=== PATIENT | male | born 1990 | race Two or more races ===

== ENCOUNTER 2017-07-23 20:59 | Emergency (ER) | payer MEDICAID ==
[~2017-07-23] VITALS: Ht 167.6 cm; Wt 107.9 kg
[~2017-07-23 20:59] MED LIST: CLIN-79 PO
[2017-07-23 21:49] LABS: BASOPHILS % (AUTO) 0 % (0-1); EOSINOPHILS % (AUTO) 0 % (0-6); HEMOGLOBIN 16.5 g/dl (14.0-17.9); LYMPHOCYTES # (AUTO) 0.7 X10'3 (1.1-4.8); LYMPHOCYTES % (AUTO) 8.6 % (21-51); MEAN CORPUSCULAR HEMOGLOBIN 31.7 PG (27.0-31.0); MEAN CORPUSCULAR HGB CONC 35.1 % (33.0-36.5); MEAN CORPUSCULAR VOLUME 90.2 FL (78-98); MEAN PLATELET VOLUME 7.7 FL (7.4-10.4); MONOCYTES # (AUTO) 0.9 X10'3 (0-0.9); MONOCYTES % (AUTO) 10.6 % (2-12); NEUTROPHILS # (AUTO) 6.8 X10'3 (1.8-7.7); NEUTROPHILS % (AUTO) 80.8 % (42-75); PLATELET COUNT 153 X10'3 (140-440); RED BLOOD COUNT 5.21 X10'6 (4.70-6.10); RED CELL DISTRIBUTION WIDTH 12.3 % (11.5-14.5); WHITE BLOOD COUNT 8.5 X10'3 (4.5-11.0)
[2017-07-23 22:05] LABS: INR 1.1 INR; PROTHROMBIN TIME 11.7 SECONDS (9.0-12.0)
[2017-07-23 22:20] LABS: ALANINE AMINOTRANSFERASE 52 U/L (12-78); ALBUMIN 3.8 G/DL (3.4-5.0); ALBUMIN/GLOBULIN RATIO 0.9 (1.1-1.5); ALKALINE PHOSPHATASE 62 IU/L (46-116); ANION GAP 16 (8-16); ASPARTATE AMINO TRANSFERASE 37 U/L (10-37); BILIRUBIN,TOTAL 0.5 MG/DL (0.1-1.0); BLOOD UREA NITROGEN 12 MG/DL (7-18); BUN/CREATININE RATIO 9.6 (5.4-32.0); CALCIUM 8.8 MG/DL (8.5-10.1); CHLORIDE 94 MMOL/L (99-107); CREATININE 1.25 MG/DL (0.60-1.10); GLUCOSE 105 MG/DL (70-104); POTASSIUM 3.5 MMOL/L (3.5-5.1); SODIUM 132 MMOL/L (135-145); TOTAL CARBON DIOXIDE 21.8 MMOL/L (24-32); TOTAL PROTEIN 7.9 G/DL (6.4-8.2); eGFR 70 ML/MIN
[2017-07-23] MEDS ORDERED: morphine 4 MG/ML inj SYRINge IV ONE (23:20)
[2017-07-23] MEDS ORDERED: normal saline 1000ml 1,000 ML IV ONE (23:20)
[2017-07-23] MEDS ORDERED: ondansetron/PF 4mg/2ml inj IV ONE (23:20)
[2017-07-23 23:27] LABS: CLARITY,URINE CLEAR (Clear); COLOR,URINE YELLOW (Yellow); GLUCOSE, URINE NEGATIVE (Neg); KETONES,URINE >=80 mg/dl (Neg); LEUKOCYTE ESTERASE ,URINE NEGATIVE (Neg); NITRITES, URINE NEGATIVE (Neg); OCCULT BLOOD,URINE SMALL (Neg); PROTEIN,URINE 30 mg/dl (Neg); UROBILINOGEN,URINE 0.2 E.U/dL (0.2-1.0)
[2017-07-23 23:33] LABS: UA COLLECTION TYPE CLN CATCH MIDSTREAM
[2017-07-23 23:34] LABS: BACTERIA,URINE NONE SEEN /HPF (Neg); RBC,URINE 0-2 /HPF (0-2); SQUAMOUS EPITHELIAL CELL,UR FEW /LPF (FEW); WBC,URINE NONE SEEN /HPF (0-4)
[2017-07-24] MEDS ORDERED: dexamethasone sod phosphate 10mg/ml inj IV STA (00:49)
[2017-07-24] MEDS ORDERED: IBUP-1984 PO (00:51)
[2017-07-24] MEDS ORDERED: ONDA4TAB9 PO (00:51)
[2017-07-24 01:06] VITALS: BP 129/84
== END 2017-07-24 01:07 | disposition home or self-care (01) ==
LOC: ER 21:00
DX: B34.9 Viral infection, unspecified (principal); R11.10 Vomiting, unspecified; R19.7 Diarrhea, unspecified; Z88.0 Allergy status to penicillin
CPT/HCPCS: 36415; 80053; 81001; 85025; 85610; 96361; 96374; 96375; 99284; A4565; J1100; J2270; J2405; J7030

== ENCOUNTER 2017-07-27 02:16 | Inpatient (IN) | payer MEDICAID ==
[~2017-07-27] VITALS: Ht 170.2 cm; Wt 104.5 kg
[~2017-07-27 02:16] MED LIST changes: +IBUP-1984 PO; +ONDA4TAB9 PO
[2017-07-27] MEDS ORDERED: ondansetron/PF 4mg/2ml inj IV ONE (03:15)
[2017-07-27] MEDS ORDERED: normal saline 1000ml 1,000 ML IV ONE (03:15)
[2017-07-27] MEDS ORDERED: morphine 4 MG/ML inj SYRINge IV ONE (03:15)
[2017-07-27] MEDS ORDERED: iohexol 300mg/ml 100ml inj. ONE (03:17)
[2017-07-27 03:21] LABS: BASOPHILS % (AUTO) 0.1 % (0-1); EOSINOPHILS # (AUTO) 0.1 X10'3 (0-0.9); EOSINOPHILS % (AUTO) 0.7 % (0-6); HEMATOCRIT 49.2 % (42.0-52.0); HEMOGLOBIN 17.1 g/dl (14.0-17.9); LYMPHOCYTES # (AUTO) 0.6 X10'3 (1.1-4.8); LYMPHOCYTES % (AUTO) 4.1 % (21-51); MEAN CORPUSCULAR HEMOGLOBIN 31.6 PG (27.0-31.0); MEAN CORPUSCULAR HGB CONC 34.8 % (33.0-36.5); MEAN CORPUSCULAR VOLUME 90.9 FL (78-98); MEAN PLATELET VOLUME 8.5 FL (7.4-10.4); MONOCYTES # (AUTO) 0.8 X10'3 (0-0.9); NEUTROPHILS # (AUTO) 12.4 X10'3 (1.8-7.7); NEUTROPHILS % (AUTO) 89.1 % (42-75); PLATELET COUNT 126 X10'3 (140-440); RED BLOOD COUNT 5.42 X10'6 (4.70-6.10); RED CELL DISTRIBUTION WIDTH 12.5 % (11.5-14.5); WHITE BLOOD COUNT 13.9 X10'3 (4.5-11.0)
[2017-07-27 03:32] LABS: INR 1.1 INR
[2017-07-27 03:37] LABS: CLARITY,URINE CLEAR (Clear); COLOR,URINE YELLOW (Yellow); GLUCOSE, URINE NEGATIVE (Neg); KETONES,URINE TRACE mg/dl (Neg); LEUKOCYTE ESTERASE ,URINE NEGATIVE (Neg); NITRITES, URINE NEGATIVE (Neg); OCCULT BLOOD,URINE SMALL (Neg); PH,URINE 5.5 (4.8-8.0); PROTEIN,URINE 30 mg/dl (Neg); UROBILINOGEN,URINE 0.2 E.U/dL (0.2-1.0)
[2017-07-27] MEDS ORDERED: ondansetron 4mg rapidly disintigrating tab PO ONE (03:40)
[2017-07-27 03:42] LABS: UA COLLECTION TYPE CLN CATCH MIDSTREAM
[2017-07-27 03:46] LABS: ALANINE AMINOTRANSFERASE 74 U/L (12-78); ALBUMIN 3.1 G/DL (3.4-5.0); ALBUMIN/GLOBULIN RATIO 0.7 (1.1-1.5); ALKALINE PHOSPHATASE 61 IU/L (46-116); ANION GAP 20 (8-16); ASPARTATE AMINO TRANSFERASE 130 U/L (10-37); BILIRUBIN,TOTAL 0.8 MG/DL (0.1-1.0); BLOOD UREA NITROGEN 36 MG/DL (7-18); BUN/CREATININE RATIO 12.8 (5.4-32.0); CALCIUM 9.1 MG/DL (8.5-10.1); CHLORIDE 93 MMOL/L (99-107); CREATININE 2.82 MG/DL (0.60-1.10); GLUCOSE 106 MG/DL (70-104); LIPASE 127 U/L (73-393); POTASSIUM 3.5 MMOL/L (3.5-5.1); SODIUM 132 MMOL/L (135-145); TOTAL CARBON DIOXIDE 18.9 MMOL/L (24-32); TOTAL PROTEIN 7.7 G/DL (6.4-8.2); eGFR 27 ML/MIN
[2017-07-27 03:46] LABS: BACTERIA,URINE 1+ /HPF (Neg); CELLULAR CAST 0-4 /LPF (NEGATIVE); RBC,URINE 0-2 /HPF (0-2); SQUAMOUS EPITHELIAL CELL,UR NONE SEEN /LPF (FEW)
[2017-07-27 04:05] LABS: PLATELET ESTIMATE DECREASED; TOTAL CELLS COUNTED 100
[2017-07-27] MEDS ORDERED: levoFLOXACIN-Levaquin 750MG/D5 150 ML IV STA (04:13)
[2017-07-27 04:21] LABS: D-DIMER 18.58 MG/L FEU (0-0.50)
[2017-07-27] MEDS ORDERED: NO HOME MEDS (05:31)
[2017-07-27] MEDS ORDERED: bisacodyl 10mg suppository rectal RC PRN (08:00)
[2017-07-27] MEDS ORDERED: potassium Cl 20 mEq SR tablet PO PRN ×2 (08:00)
[2017-07-27] MEDS ORDERED: magnesium Cl slow-release 64mg tablet PO PRN (08:00)
[2017-07-27] MEDS ORDERED: ondansetron/PF 4mg/2ml inj IV PRN (08:00)
[2017-07-27] MEDS ORDERED: mag hydrox/Alum hydrox/simeth 30ml oral suspension PO PRN (08:00)
[2017-07-27] MEDS ORDERED: enoxaparin 40mg/0.4ml syringe SUBCUT SCH (08:00)
[2017-07-27] MEDS ORDERED: magnesium 2GM in 50ml NS 50 ML IV PRN (08:00)
[2017-07-27] MEDS: terbinafine 250mg tablet PO SCH (08:00)
[2017-07-27] MEDS ORDERED: potassium Cl 40MEQ/NS 500ml 500 ML IV PRN ×2 (08:00)
[2017-07-27] MEDS: K and/or MAG REPLACEMENT MC SCH (08:00)
[2017-07-27] MEDS: levoFLOXACIN-Levaquin 750MG/D5 150 ML IV SCH (08:00)
[2017-07-27] MEDS ORDERED: HYDROcodone/acetaminophen 5mg/325mg tablet PO PRN (08:00)
[2017-07-27] MEDS ORDERED: magnesium 4gm in 100ml NS 100 ML IV PRN (08:00)
[2017-07-27] MEDS ORDERED: magnesium hydroxide 30ml (MOM) UD suspension PO PRN (08:00)
[2017-07-27] MEDS ORDERED: ONDA4TAB9 SL (08:03)
[2017-07-27 08:30] VITALS: BP 139/76
[2017-07-27] MEDS: docusate sod 100mg capsule PO SCH ×2 (10:27→21:02)
[2017-07-27] MEDS: potassium Cl 20mEq in NS 1,000 ML IV SCH ×2 (10:27→21:01)
[2017-07-27 11:00] VITALS: BP 121/76
[2017-07-27] MEDS: acetaminophen 325mg tablet PO PRN (14:01)
[2017-07-27 15:00] VITALS: BP 103/59
[2017-07-27 15:38] LABS: URINE AMPHETAMINE SCREEN NEGATIVE (Neg); URINE BARBITUATE SCREEN NEGATIVE (Neg); URINE BENZODIAZEPINES SCREEN NEGATIVE (Neg); URINE CANNABINOID SCREEN POSITIVE (Neg); URINE COCAINE SCREEN NEGATIVE (Neg); URINE METHADONE SCREEN NEGATIVE (Neg); URINE OPIATE SCREEN POSITIVE (Neg); URINE PHENCYCLIDINE SCREEN NEGATIVE (Neg)
[2017-07-27] MEDS: metoclopramide 5 mg/ml inj IV PRN (18:46)
[2017-07-27] MEDS: HYDROcodone/acetaminophen 10/325mg tab PO PRN (18:55)
[2017-07-27 19:00] VITALS: BP 121/71
[2017-07-27] MEDS ORDERED: triamcinolone acet 0.1% cream 15gm TP SCH (20:00)
[2017-07-27] MEDS ORDERED: morphine 4 MG/ML inj SYRINge IV PRN (20:30)
[2017-07-27] MEDS: lactobacillus rhamnosus 10,000 MMU CELLS/CAPSULE PO SCH (21:02)
[2017-07-27] MEDS: enoxaparin 100mg/ml syringe SUBCUT SCH (21:03)
[2017-07-27] MEDS: clotrimazole topical cream 15gm tube TP SCH (21:03)
[2017-07-27 23:00] VITALS: BP 124/73
[2017-07-28 03:00] VITALS: BP 126/74
[2017-07-28 06:00] VITALS: BP 131/91
[2017-07-28 06:08] LABS: BASOPHILS % (AUTO) 0.1 % (0-1); EOSINOPHILS # (AUTO) 0.1 X10'3 (0-0.9); EOSINOPHILS % (AUTO) 0.7 % (0-6); HEMATOCRIT 40.1 % (42.0-52.0); HEMOGLOBIN 14.1 g/dl (14.0-17.9); LYMPHOCYTES # (AUTO) 0.7 X10'3 (1.1-4.8); LYMPHOCYTES % (AUTO) 6.1 % (21-51); MEAN CORPUSCULAR HEMOGLOBIN 32.2 PG (27.0-31.0); MEAN CORPUSCULAR HGB CONC 35.2 % (33.0-36.5); MEAN CORPUSCULAR VOLUME 91.5 FL (78-98); MEAN PLATELET VOLUME 8.6 FL (7.4-10.4); MONOCYTES # (AUTO) 1.4 X10'3 (0-0.9); MONOCYTES % (AUTO) 12.3 % (2-12); NEUTROPHILS # (AUTO) 9.2 X10'3 (1.8-7.7); NEUTROPHILS % (AUTO) 80.8 % (42-75); PLATELET COUNT 142 X10'3 (140-440); RED BLOOD COUNT 4.39 X10'6 (4.70-6.10); RED CELL DISTRIBUTION WIDTH 12.3 % (11.5-14.5); WHITE BLOOD COUNT 11.4 X10'3 (4.5-11.0)
[2017-07-28] MEDS: docusate sod 100mg capsule PO SCH ×2 (06:17→22:49)
[2017-07-28 06:27] LABS: ALANINE AMINOTRANSFERASE 56 U/L (12-78); ALBUMIN 2.1 G/DL (3.4-5.0); ALBUMIN/GLOBULIN RATIO 0.5 (1.1-1.5); ALKALINE PHOSPHATASE 59 IU/L (46-116); ANION GAP 11 (8-16); ASPARTATE AMINO TRANSFERASE 144 U/L (10-37); BILIRUBIN,TOTAL 1.7 MG/DL (0.1-1.0); BLOOD UREA NITROGEN 18 MG/DL (7-18); CALCIUM 8.2 MG/DL (8.5-10.1); CHLORIDE 102 MMOL/L (99-107); CREATININE 1.29 MG/DL (0.60-1.10); GLUCOSE 98 MG/DL (70-104); MAGNESIUM 2.3 MG/DL (1.5-2.4); POTASSIUM 3.9 MMOL/L (3.5-5.1); SODIUM 134 MMOL/L (135-145); TOTAL CARBON DIOXIDE 21.1 MMOL/L (24-32); eGFR 67 ML/MIN
[2017-07-28 06:54] LABS: PLATELET ESTIMATE DECREASED; TOTAL CELLS COUNTED 100
[2017-07-28] MEDS: terbinafine 250mg tablet PO SCH (07:38)
[2017-07-28] MEDS: potassium Cl 20mEq in NS 1,000 ML IV SCH ×2 (07:38→13:49)
[2017-07-28] MEDS: enoxaparin 100mg/ml syringe SUBCUT SCH (07:39)
[2017-07-28] MEDS: lactobacillus rhamnosus 10,000 MMU CELLS/CAPSULE PO SCH ×2 (07:39→22:49)
[2017-07-28] MEDS: clotrimazole topical cream 15gm tube TP SCH ×2 (07:40→22:50)
[2017-07-28] MEDS: K and/or MAG REPLACEMENT MC SCH (08:00)
[2017-07-28] MEDS: levoFLOXACIN-Levaquin 750MG/D5 150 ML IV SCH (08:00)
[2017-07-28] MEDS ORDERED: iohexol 350MG/ML 100ml bottle IV ONE (09:58)
[2017-07-28] MEDS ORDERED: albuterol 2.5 MG/3 ML nebule NEB PRN (10:15)
[2017-07-28 11:00] VITALS: BP 120/81
[2017-07-28] MEDS: acetaminophen 325mg tablet PO PRN ×2 (11:11→19:35)
[2017-07-28 15:00] VITALS: BP 129/75
[2017-07-28] MEDS: benzonatate 100mg capsule PO SCH (16:32)
[2017-07-28] MEDS: doxycycline hyclate 100mg tablet.DR PO SCH (17:04)
[2017-07-28 19:00] VITALS: BP 125/82
[2017-07-28 23:00] VITALS: BP 119/75
[2017-07-29] MEDS: benzonatate 100mg capsule PO SCH ×4 (00:15→23:43)
[2017-07-29] MEDS: potassium Cl 20mEq in NS 1,000 ML IV SCH ×3 (00:16→21:00)
[2017-07-29 03:00] VITALS: BP 124/76
[2017-07-29 05:20] LABS: BASOPHILS % (AUTO) 0.2 % (0-1); EOSINOPHILS % (AUTO) 0.1 % (0-6); HEMATOCRIT 37.5 % (42.0-52.0); HEMOGLOBIN 13.2 g/dl (14.0-17.9); LYMPHOCYTES # (AUTO) 1.1 X10'3 (1.1-4.8); LYMPHOCYTES % (AUTO) 10.2 % (21-51); MEAN CORPUSCULAR HEMOGLOBIN 31.8 PG (27.0-31.0); MEAN CORPUSCULAR HGB CONC 35.1 % (33.0-36.5); MEAN CORPUSCULAR VOLUME 90.5 FL (78-98); MEAN PLATELET VOLUME 8.5 FL (7.4-10.4); MONOCYTES # (AUTO) 1.2 X10'3 (0-0.9); MONOCYTES % (AUTO) 11.3 % (2-12); NEUTROPHILS # (AUTO) 8.5 X10'3 (1.8-7.7); NEUTROPHILS % (AUTO) 78.2 % (42-75); PLATELET COUNT 183 X10'3 (140-440); RED BLOOD COUNT 4.14 X10'6 (4.70-6.10); RED CELL DISTRIBUTION WIDTH 12.6 % (11.5-14.5); WHITE BLOOD COUNT 10.9 X10'3 (4.5-11.0)
[2017-07-29 05:22] LABS: ALANINE AMINOTRANSFERASE 54 U/L (12-78); ALBUMIN/GLOBULIN RATIO 0.5 (1.1-1.5); ALKALINE PHOSPHATASE 59 IU/L (46-116); ANION GAP 9 (8-16); ASPARTATE AMINO TRANSFERASE 140 U/L (10-37); BILIRUBIN,TOTAL 1.1 MG/DL (0.1-1.0); BLOOD UREA NITROGEN 16 MG/DL (7-18); BUN/CREATININE RATIO 16.3 (5.4-32.0); CALCIUM 8.1 MG/DL (8.5-10.1); CHLORIDE 106 MMOL/L (99-107); CREATININE 0.98 MG/DL (0.60-1.10); GLUCOSE 87 MG/DL (70-104); MAGNESIUM 2.4 MG/DL (1.5-2.4); POTASSIUM 4.2 MMOL/L (3.5-5.1); SODIUM 138 MMOL/L (135-145); TOTAL CARBON DIOXIDE 23.4 MMOL/L (24-32); TOTAL PROTEIN 5.9 G/DL (6.4-8.2); eGFR > 90 ML/MIN
[2017-07-29 06:00] VITALS: BP 121/80
[2017-07-29] MEDS: levoFLOXACIN-Levaquin 750MG/D5 150 ML IV SCH (07:16)
[2017-07-29] MEDS: lactobacillus rhamnosus 10,000 MMU CELLS/CAPSULE PO SCH ×2 (07:17→20:59)
[2017-07-29] MEDS: doxycycline hyclate 100mg tablet.DR PO SCH ×2 (07:17→17:38)
[2017-07-29] MEDS: terbinafine 250mg tablet PO SCH (07:17)
[2017-07-29] MEDS: docusate sod 100mg capsule PO SCH ×2 (07:17→20:59)
[2017-07-29] MEDS: enoxaparin 40mg/0.4ml syringe SQ SCH (07:18)
[2017-07-29 07:32] LABS: BANDS% (MANUAL) 8 % (0-10); LYMPHOCYTES % (MANUAL) 7 % (21-51); METAMYLEOCYTES% (MANUAL) 2 % (0-0); MONOCYTES % (MANUAL) 10 % (2-12); MYELOCYTES % (MANUAL) 1 % (0-0); NEUTROPHILS % (MANUAL) 72 % (42-75); PLATELET ESTIMATE NORMAL; TOTAL CELLS COUNTED 100
[2017-07-29] MEDS: K and/or MAG REPLACEMENT MC SCH (08:00)
[2017-07-29] MEDS ORDERED: enoxaparin 100mg/ml syringe SUBCUT SCH (08:00)
[2017-07-29] MEDS: clotrimazole topical cream 15gm tube TP SCH ×2 (08:00→20:59)
[2017-07-29 19:00] VITALS: BP 135/76
[2017-07-29 23:00] VITALS: BP 128/81
[2017-07-30 03:00] VITALS: BP 138/93
[2017-07-30] MEDS: potassium Cl 20mEq in NS 1,000 ML IV SCH ×2 (05:58→15:32)
[2017-07-30 06:00] VITALS: BP 136/96
[2017-07-30 06:23] LABS: ALANINE AMINOTRANSFERASE 57 U/L (12-78); ALBUMIN/GLOBULIN RATIO 0.5 (1.1-1.5); ALKALINE PHOSPHATASE 80 IU/L (46-116); ANION GAP 11 (8-16); ASPARTATE AMINO TRANSFERASE 133 U/L (10-37); BILIRUBIN,TOTAL 0.7 MG/DL (0.1-1.0); BLOOD UREA NITROGEN 14 MG/DL (7-18); BUN/CREATININE RATIO 18.2 (5.4-32.0); CALCIUM 7.9 MG/DL (8.5-10.1); CHLORIDE 109 MMOL/L (99-107); CREATININE 0.77 MG/DL (0.60-1.10); GLUCOSE 85 MG/DL (70-104); MAGNESIUM 1.9 MG/DL (1.5-2.4); POTASSIUM 3.6 MMOL/L (3.5-5.1); SODIUM 141 MMOL/L (135-145); TOTAL CARBON DIOXIDE 20.7 MMOL/L (24-32); TOTAL PROTEIN 5.9 G/DL (6.4-8.2); eGFR > 90 ML/MIN
[2017-07-30] MEDS: terbinafine 250mg tablet PO SCH (07:28)
[2017-07-30] MEDS: lactobacillus rhamnosus 10,000 MMU CELLS/CAPSULE PO SCH ×2 (07:29→19:35)
[2017-07-30] MEDS: enoxaparin 40mg/0.4ml syringe SQ SCH (07:29)
[2017-07-30] MEDS: doxycycline hyclate 100mg tablet.DR PO SCH ×2 (07:29→17:55)
[2017-07-30] MEDS: benzonatate 100mg capsule PO SCH ×3 (07:29→23:42)
[2017-07-30] MEDS: clotrimazole topical cream 15gm tube TP SCH ×2 (07:30→19:35)
[2017-07-30] MEDS: K and/or MAG REPLACEMENT MC SCH (08:00)
[2017-07-30] MEDS: docusate sod 100mg capsule PO SCH ×2 (08:00→19:35)
[2017-07-30] MEDS: levoFLOXACIN 750MG TABLET PO SCH (10:17)
[2017-07-30 11:00] VITALS: BP 127/81
[2017-07-30 15:00] VITALS: BP 154/95
[2017-07-30 19:00] VITALS: BP 131/92
[2017-07-30 23:00] VITALS: BP 136/94
[2017-07-31 03:00] VITALS: BP 126/84
[2017-07-31 06:00] VITALS: BP 132/82
[2017-07-31] MEDS: doxycycline hyclate 100mg tablet.DR PO SCH ×2 (07:29→17:27)
[2017-07-31] MEDS: docusate sod 100mg capsule PO SCH ×2 (07:29→20:36)
[2017-07-31] MEDS: terbinafine 250mg tablet PO SCH (07:29)
[2017-07-31] MEDS: lactobacillus rhamnosus 10,000 MMU CELLS/CAPSULE PO SCH ×2 (07:29→20:35)
[2017-07-31] MEDS: enoxaparin 40mg/0.4ml syringe SQ SCH (08:00)
[2017-07-31] MEDS: K and/or MAG REPLACEMENT MC SCH (08:00)
[2017-07-31] MEDS: benzonatate 100mg capsule PO SCH ×2 (08:48→16:09)
[2017-07-31] MEDS: HYDROcodone/acetaminophen 10/325mg tab PO PRN (08:48)
[2017-07-31] MEDS: clotrimazole topical cream 15gm tube TP SCH ×2 (08:49→20:36)
[2017-07-31] MEDS: levoFLOXACIN 750MG TABLET PO SCH (10:40)
[2017-07-31] MEDS: prednisone 10mg tablet PO SCH (10:40)
[2017-07-31 11:00] VITALS: BP_SYST 124; BP_SYST 144; BP_DIAS 81; BP_DIAS 87
[2017-07-31] MEDS: MORPHINE 2MG in 2ml NS syringe IV PRN ×2 (11:20→19:13)
[2017-07-31] MEDS: pantoprazole 40mg Tablet.DR PO SCH (11:42)
[2017-07-31] MEDS: ipratropium/albuterol 3ml nebule NEB SCH ×3 (14:38→23:24)
[2017-07-31 15:00] VITALS: BP 155/98
[2017-07-31] MEDS ORDERED: metoclopramide 5 mg/ml inj IV ONE (16:05)
[2017-07-31] MEDS: metoclopramide 5 mg/ml inj IV PRN (16:09)
[2017-07-31 19:00] VITALS: BP 131/96
[2017-07-31 23:00] VITALS: BP 135/86
[2017-08-01] MEDS: benzonatate 100mg capsule PO SCH ×2 (00:36→08:17)
[2017-08-01 03:00] VITALS: BP 122/85
[2017-08-01] MEDS: ipratropium/albuterol 3ml nebule NEB SCH ×4 (03:25→15:42)
[2017-08-01 06:00] VITALS: BP 129/89
[2017-08-01 06:15] LABS: BASOPHILS # (AUTO) 0.1 X10'3 (0-0.2); BASOPHILS % (AUTO) 0.4 % (0-1); EOSINOPHILS # (AUTO) 0.2 X10'3 (0-0.9); HEMATOCRIT 38.1 % (42.0-52.0); HEMOGLOBIN 13.4 g/dl (14.0-17.9); LYMPHOCYTES # (AUTO) 2.8 X10'3 (1.1-4.8); LYMPHOCYTES % (AUTO) 15.8 % (21-51); MEAN CORPUSCULAR HEMOGLOBIN 31.6 PG (27.0-31.0); MEAN CORPUSCULAR HGB CONC 35.3 % (33.0-36.5); MEAN CORPUSCULAR VOLUME 89.6 FL (78-98); MEAN PLATELET VOLUME 7.9 FL (7.4-10.4); MONOCYTES # (AUTO) 3.2 X10'3 (0-0.9); MONOCYTES % (AUTO) 17.8 % (2-12); NEUTROPHILS # (AUTO) 11.6 X10'3 (1.8-7.7); PLATELET COUNT 340 X10'3 (140-440); RED BLOOD COUNT 4.25 X10'6 (4.70-6.10); RED CELL DISTRIBUTION WIDTH 12.8 % (11.5-14.5); WHITE BLOOD COUNT 17.9 X10'3 (4.5-11.0)
[2017-08-01 06:50] LABS: ALANINE AMINOTRANSFERASE 99 U/L (12-78); ALBUMIN 2.4 G/DL (3.4-5.0); ALBUMIN/GLOBULIN RATIO 0.6 (1.1-1.5); ALKALINE PHOSPHATASE 77 IU/L (46-116); ANION GAP 11 (8-16); ASPARTATE AMINO TRANSFERASE 103 U/L (10-37); BILIRUBIN,TOTAL 0.7 MG/DL (0.1-1.0); BLOOD UREA NITROGEN 11 MG/DL (7-18); BUN/CREATININE RATIO 16.7 (5.4-32.0); CALCIUM 8.4 MG/DL (8.5-10.1); CHLORIDE 109 MMOL/L (99-107); CREATININE 0.66 MG/DL (0.60-1.10); GLUCOSE 99 MG/DL (70-104); SODIUM 143 MMOL/L (135-145); TOTAL CARBON DIOXIDE 23.5 MMOL/L (24-32); TOTAL PROTEIN 6.4 G/DL (6.4-8.2); eGFR > 90 ML/MIN
[2017-08-01 06:51] LABS: TOTAL CELLS COUNTED 100
[2017-08-01 06:52] LABS: POTASSIUM 2.9 MMOL/L (3.5-5.1)
[2017-08-01 06:54] LABS: GIANT PLATELET FEW; LARGE PLATELETS FEW; PLATELET ESTIMATE NORMAL
[2017-08-01] MEDS: K and/or MAG REPLACEMENT MC SCH (07:09)
[2017-08-01] MEDS: clotrimazole topical cream 15gm tube TP SCH (08:00)
[2017-08-01] MEDS: prednisone 10mg tablet PO SCH (08:17)
[2017-08-01] MEDS: lactobacillus rhamnosus 10,000 MMU CELLS/CAPSULE PO SCH (08:17)
[2017-08-01] MEDS: terbinafine 250mg tablet PO SCH (08:17)
[2017-08-01] MEDS: doxycycline hyclate 100mg tablet.DR PO SCH (08:17)
[2017-08-01] MEDS: pantoprazole 40mg Tablet.DR PO SCH (08:17)
[2017-08-01] MEDS: docusate sod 100mg capsule PO SCH (08:17)
[2017-08-01] MEDS ORDERED: potassium Cl 20 mEq SR tablet PO PRN ×2 (10:10)
[2017-08-01] MEDS ORDERED: potassium Cl 40MEQ/NS 500ml 500 ML IV PRN ×2 (10:10)
[2017-08-01] MEDS ORDERED: K and/or MAG REPLACEMENT MC SCH (10:10)
[2017-08-01] MEDS: levoFLOXACIN 750MG TABLET PO SCH (10:13)
[2017-08-01 11:00] VITALS: BP 136/89
[2017-08-01] MEDS ORDERED: potassium 20mEq/D5LR 1000ml bag IV ONE (11:05)
[2017-08-01] MEDS ORDERED: WATER IV ONE (11:10)
[2017-08-01] MEDS ORDERED: DEXTROSE 5% IV ONE (11:10)
[2017-08-01] MEDS ORDERED: POTASSIUM CL IV ONE (11:10)
[2017-08-01] MEDS ORDERED: ALBU6.7H INH (14:31)
[2017-08-01] MEDS ORDERED: BENZ-16 PO (14:31)
[2017-08-01] MEDS ORDERED: CLOT30CR TP (14:31)
[2017-08-01] MEDS ORDERED: DOXY-200 PO (14:31)
[2017-08-01] MEDS ORDERED: LEVO750T46 PO (14:31)
[2017-08-01] MEDS ORDERED: OMEP20TA23 PO (14:31)
[2017-08-01] MEDS ORDERED: PRED10TA23 PO (14:31)
[2017-08-01] MEDS ORDERED: POTA20TA19 PO (14:34)
[2017-08-01 15:00] VITALS: BP 137/91
== END 2017-08-01 16:21 | disposition home or self-care (01) | DRG 720 ==
LOC: ER 02:17 → ED HOLD 06:49 → EDBEDREQ 07:33 → PCU 3S 08:20
PROVIDERS: ADMIT Internal Medicine; ATTEND Internal Medicine
PROC: BW211ZZ Computerized Tomography (CT Scan) of Abdomen and Pelvis using Low Osmolar Contrast (ICD-10-PCS; principal; 2017-07-27)
PROC: CB221ZZ Tomographic (Tomo) Nuclear Medicine Imaging of Lungs and Bronchi using Technetium 99m (Tc-99m) (ICD-10-PCS; 2017-07-27)
PROC: B2261ZZ Computerized Tomography (CT Scan) of Right and Left Heart using Low Osmolar Contrast (ICD-10-PCS; 2017-07-28)
DX: A41.9 Sepsis, unspecified organism (principal); J96.00 Acute respiratory failure, unspecified whether with hypoxia or hypercapnia; N17.9 Acute kidney failure, unspecified; J18.9 Pneumonia, unspecified organism; E86.0 Dehydration; F12.90 Cannabis use, unspecified, uncomplicated; B35.4 Tinea corporis; E87.6 Hypokalemia; N39.0 Urinary tract infection, site not specified; R21 Rash and other nonspecific skin eruption; R79.1 Abnormal coagulation profile; K29.70 Gastritis, unspecified, without bleeding; Z87.891 Personal history of nicotine dependence; Z88.0 Allergy status to penicillin
CPT/HCPCS: 36415; 71045; 71046; 71275; 74177; 78582; 80053; 80305; 80320; 81001; 83605; 83690; 83735; 84132; 85025; 85379; 85610; 86713; 87040; 87070; 87088; 87502; 87503; 93005; 93970; 94640; 94760; 96361; 96365; 96375; 99285; A4620; A9539; A9540; J1650; J1956; J2270; J2274; J2405; J2765; J3480; J7030; J7060; J7512; Q9967